=== PATIENT | female | born 1980 | race African-American/Black ===

== ENCOUNTER 2024-06-14 14:42 | Inpatient (IN) | payer OTHER ==
[~2024-06-14] VITALS: Ht 167.6 cm; Wt 82.9 kg
[2024-06-14] MEDS: SODIUM CHLORIDE 0.9% 1,000 ML IV ONE (15:33)
[2024-06-14 16:13] LABS: BASOPHILS % 0.8 % (0.0-2.0); EOSINOPHILS % 3.9 % (0.0-5.0); HEMATOCRIT. 34.3 % (36.0-48.0); HEMOGLOBIN. 11.7 g/dL (12.0-16.0); LYMPHOCYTES % 42.3 % (20.0-50.0); MEAN CORPUSCULAR HEMOGLOBIN 28.6 pg (28.0-32.0); MEAN PLATELET VOLUME 7.7 fl (7.4-10.4); PLATELET 310 x1000/uL (130-400); RED BLOOD CELL COUNT 4.09 mill/uL (4.2-5.4); RED CELL DISTRIBUTION WIDTH 14.3 % (11.6-14.6)
[2024-06-14 16:20] LABS: CHLORIDE 110 mEq/L (98-107); POTASSIUM 3.4 mEq/L (3.5-5.1); SODIUM 141 mEq/L (136-145)
[2024-06-14 16:21] LABS: CALCIUM 8.4 mg/dL (8.7-10.4); CARBON DIOXIDE 28 mEq/L (21-32)
[2024-06-14 16:26] LABS: CREATININE 0.7 mg/dL (0.6-1.0); GLUCOSE 88 mg/dL (70-105); HCG SCREEN NEGATIVE; UREA NITROGEN BLOOD 7 mg/dL (9-23)
[2024-06-14 16:33] LABS: ETHANOL BLOOD < 10 mg/dL (<10)
[2024-06-14] MEDS: POTASSIUM CHLORIDE 20MEQ TABLET SR PO NR (18:35)
[2024-06-15 08:45] VITALS: BP 118/82; PULSE 77; RESP 18; TEMP 36.28068; TEMP 36.3068; O2SAT 97
[2024-06-15] MEDS ORDERED: ACETAMINOPHEN 325MG TABLET PO PRN (10:15)
[2024-06-15 12:00] VITALS: BP 111/80; PULSE 67; RESP 18; TEMP 36.28068; O2SAT 94
[2024-06-15 16:00] VITALS: BP 115/79; PULSE 99; RESP 18; TEMP 36.16956; O2SAT 100
[2024-06-15 20:00] VITALS: BP 128/91; PULSE 103; RESP 20; TEMP 36.50292; O2SAT 98
[2024-06-16] VITALS (7 sets, daily range): BP systolic 104–123; BP diastolic 52–90; PULSE 78–104; RESP 18–20; TEMP 36.16956–37.16964; O2SAT 98–99
[2024-06-17] VITALS: BP 122/84; PULSE 84; RESP 18; TEMP 36.50292; O2SAT 98
[2024-06-17 04:00] VITALS: BP 119/78; PULSE 78; RESP 18; TEMP 36.55848; O2SAT 99
[2024-06-17 08:00] VITALS: BP 108/75; PULSE 100; RESP 19; TEMP 36.05844; O2SAT 100
[2024-06-17 11:55] VITALS: BP 108/75; PULSE 100; TEMP 96.9; O2SAT 100
== END 2024-06-17 12:16 | disposition home or self-care (01) | DRG 52 ==
LOC: ER 14:42 → 5WST 21:34 → 6EST 06-15 08:39
PROVIDERS: ADMIT Internal Medicine; ATTEND Internal Medicine
DX: G92.8 Other toxic encephalopathy (principal); F19.10 Other psychoactive substance abuse, uncomplicated; Z20.822 Contact with and (suspected) exposure to COVID-19; Z59.00 Homelessness unspecified; Z79.899 Other long term (current) drug therapy
CPT/HCPCS: 36415; 80048; 80320; 84703; 85025; 87426; 99285; J3411; J3490; J7030; G0480

== ENCOUNTER 2024-07-18 11:35 | Emergency (ER) | payer OTHER ==
[~2024-07-18] VITALS: Ht 172.7 cm; Wt 70.0 kg
[2024-07-18 11:39] VITALS: BP 125/80; PULSE 86; RESP 16; O2SAT 99
[2024-07-18 13:04] VITALS: TEMP 98.5
[2024-07-18] MEDS: ACETAMINOPHEN 325MG TABLET PO ONE (13:04)
[2024-07-18] MEDS ORDERED: CEPH500T MT (14:35)
[2024-07-18] MEDS ORDERED: IBUP-2028 PO (14:35)
[2024-07-18] MEDS ORDERED: TOPUD PO (14:35)
[2024-07-18] MEDS ORDERED: DOXY100T2 MT (14:43)
[2024-07-18] MEDS: DOXYCYCLINE HYCLATE 100MG CAPSULE PO NR (15:03)
== END 2024-07-18 15:05 | disposition home or self-care (01) ==
LOC: ER 11:52
DX: L02.412 Cutaneous abscess of left axilla (principal); F19.90 Other psychoactive substance use, unspecified, uncomplicated
CPT/HCPCS: 10060; 99283; Z7610

== ENCOUNTER 2025-09-20 01:20 | Emergency (ER) | payer OTHER ==
[~2025-09-20] VITALS: Ht 160 cm; Wt 84.0 kg
[~2025-09-20 01:20] MED LIST: CEPH500T MT; DOXY100T2 MT; IBUP-2028 PO; TOPUD PO
[2025-09-20 02:00] VITALS: O2SAT 99
[2025-09-20] MEDS: KETOROLAC 15MG/ML VIAL IM ONE (02:51)
[2025-09-20] MEDS ORDERED: NAPR-1176 MT (03:18)
[2025-09-20 03:33] VITALS: BP 132/86; PULSE 98; RESP 19; TEMP 36.8; O2SAT 98
== END 2025-09-20 03:38 | disposition home or self-care (01) ==
LOC: ER 01:20
DX: M79.645 Pain in left finger(s) (principal); F19.90 Other psychoactive substance use, unspecified, uncomplicated; Z79.899 Other long term (current) drug therapy
CPT/HCPCS: 99283; 81025; 73130; 29130; 96372; J1885